=== PATIENT | female | born 1985 | race Two or more races ===

== ENCOUNTER 2022-05-03 13:16 | Emergency (ER) | payer MEDICAID, OTHER ==
[~2022-05-03] VITALS: Ht 170.2 cm; Wt 118.2 kg
[2022-05-03 14:25] LABS: Urine Bacteria FEW /hpf (None Seen); Urine Blood 3+ /uL (Negative); Urine Mucus FEW (None Seen); Urine Specific Gravity 1.021 (1.001-1.035); Urine WBC 282 /hpf (0 - 5); Urine WBC Clumps PRESENT /hpf (None Seen)
[2022-05-03] MEDS ORDERED: ONDANSETRON ODT 4 MG TAB PO ONE (14:45)
[2022-05-03] MEDS ORDERED: cefTRIAXone SOD 1,000 MG VL IM ONE (14:45)
[2022-05-03] MEDS ORDERED: BACDST PO (15:17)
[2022-05-03] MEDS ORDERED: ONDA-144 PO (15:17)
[2022-05-03 15:22] VITALS: BP 119/74
== END 2022-05-03 15:25 | disposition home or self-care (01) ==
LOC: ER 13:16
DX: N39.0 Urinary tract infection, site not specified (principal); Z79.899 Other long term (current) drug therapy
CPT/HCPCS: 81001; 81025; 96372; 99283; J0696; Q0162